=== PATIENT | male | born 1955 | race Caucasian/White ===

== ENCOUNTER 2017-07-01 18:38 | Emergency (ER) | payer OTHER ==
[~2017-07-01] VITALS: Ht 180.3 cm; Wt 113.4 kg
[2017-07-01] MEDS ORDERED: Solu-MEDROL 125mg Inj IVP ONE (19:15)
[2017-07-01] MEDS ORDERED: Albuterol/Ipratropium 3ml neb HHN ONE (19:15)
[2017-07-01 19:20] VITALS: BP 156/95
[2017-07-01 20:07] LABS: HEMATOCRIT 29.2 % (42.0-52.0); HEMOGLOBIN 9.2 G/DL (14.2-18.0); MEAN CORPUSCULAR VOLUME 82 FL (80-99); PLATELET COUNT 312 K/UL (150-450); RED BLOOD COUNT 3.54 M/UL (4.70-6.10); RED CELL DISTRIBUTION WIDTH 17.4 % (11.6-14.8)
[2017-07-01 20:09] LABS: ANION GAP 9 mmol/L (5-15); BLOOD UREA NITROGEN 45 mg/dL (7-18); CALCIUM 9.1 MG/DL (8.5-10.1); CARBON DIOXIDE 27 MMOL/L (21-32); CHLORIDE 103 MMOL/L (98-107); CREATININE 2.4 MG/DL (0.55-1.30); POTASSIUM 4.3 MMOL/L (3.5-5.1); SODIUM 139 MMOL/L (136-145)
[2017-07-01 20:13] LABS: APPEARANCE,URINE CLEAR; BILIRUBIN, URINE NEGATIVE (NEGATIVE); COLOR,URINE PALE YELLOW; GLUCOSE, URINE (UA) NEGATIVE (NEGATIVE); KETONES,URINE NEGATIVE (NEGATIVE); LEUKOCYTE ESTERASE ,URINE NEGATIVE (NEGATIVE); NITRITE,URINE NEGATIVE (NEGATIVE); PH,URINE 5 (4.5-8.0); PROTEIN,URINE 3+ (NEGATIVE); UROBILINOGEN,URINE NORMAL MG/DL (0.0-1.0)
[2017-07-01 20:23] LABS: ALANINE AMINOTRANSFERASE 26 U/L (12-78); ALBUMIN 2.7 G/DL (3.4-5.0); ALBUMIN/GLOBULIN RATIO 0.5 (1.0-2.7); ALKALINE PHOSPHATASE 104 U/L (46-116); ASPARTATE AMINO TRANSFERASE 16 U/L (15-37); BILIRUBIN,TOTAL 0.7 MG/DL (0.2-1.0); CKMB 1.2 NG/ML (0.0-3.6); CREATINE KINASE 47 U/L (26-308)
[2017-07-01] MEDS ORDERED: Morphine Sulfate 4mg/ml Inj IVP ONE (20:45)
[2017-07-01] MEDS ORDERED: Ampicillin/Sulbactam Sod 3 GM in NS 110 ML IVPB ONE (21:15)
[2017-07-01] MEDS ORDERED: Unasyn 3gm Inj ONE (21:24)
[2017-07-01 21:30] VITALS: BP 113/62
--- NOTE | 2017-07-01 21:51 | Emergency Room Report ---
History of Present Illness General Chief Complaint: Dyspnea/Respdistress Source: EMS Present Illness HPI Patient is a 62-year-old male brought in by EMS after increased difficulty breathing. Patient gradual onset of symptoms. Patient reported having prior history of COPD. He was having increased productive cough. This Had continued past 2 days. He had other complaints of chest pain. He reported having some low back pain. He states he's had prior history of GI bleed. He denies any vomiting or diarrhea. No fever but had been having chills. Allergies: Coded Allergies: No Known Allergies (Unverified , 07/01/17) Patient History Past Medical History: see triage record Reviewed Nursing Documentation: PMH: Agreed, PSxH: Agreed Nursing Documentation-PMH Hx Cardiac Problems: Yes - CHF Hx Hypertension: Yes Hx COPD: Yes Hx Diabetes: Yes Review of Systems All Other Systems: negative except mentioned in HPI Physical Exam Vital Signs Date Time Temp Pulse Resp B/P (MAP) Pulse Ox O2 Delivery O2 Flow Rate FiO2 07/01/17 18:48 100.0 115 20 156/95 97 Nasal Cannula 3.0 100.0 07/01/17 19:20 28 Sp02 EP Interpretation: reviewed, normal General Appearance: normal inspection, alert, GCS 15, non-toxic, obese, Chronically Ill Head: atraumatic ENT: normal ENT inspection, hearing grossly normal, normal voice Neck: normal inspection, full range of motion, supple, no bony tend Respiratory: normal inspection, no respiratory distress, no retraction, wheezing Cardiovascular #1: regular rate, rhythm, edema Gastrointestinal: normal inspection, normal bowel sounds, non tender, soft, no guarding, no hernia Genitourinary: no CVA tenderness Musculoskeletal: normal inspection, normal range of motion, decreased range of motion Neurologic: normal inspection, alert, oriented x3, responsive, allergy specialist III-XII nml as tested, speech normal Psychiatric: normal inspection, judgement/insight normal, mood/affect normal Skin: normal inspection, normal color, no rash Medical Decision Making Diagnostic Impression: Primary Impression: Respiratory distress Additional Impressions: Pneumonia COPD (chronic obstructive pulmonary disease) Renal insufficiency Anemia ER Course Patient presented for shortness of breath. Differential included but was not limited to anemia, pneumonia, pneumothorax, myocardial infarction, pericardial effusion, congestive heart failure, acidosis. Because of complexity of patient' s case laboratory testing and imaging studies were ordered. Laboratory studies are notable for anemia with hemoglobin of 9. Patient noted to have elevated BUN/creatinine consistent patient's chronic renal insufficiency. Patient was given IV antibiotics as well as IV steroids. He was given breathing treatments. Patient was given morphine for pain. EKG interpreted by me showed multifocal atrial tachycardia with a rate of [address] or T wave changes. I lactic as was noted be normal. ABG showed adequate oxygenation on 3 L nasal cannula with normal pH and adequate PO2. Dr. Bonilla from [facility] was contacted for transfer to [facility] Case [id number]. The patient was transferred to [facility]. Labs Test 07/01/17 19:45 07/01/17 19:50 07/01/17 20:00 White Blood Count 10.0 K/UL (4.8-10.8) Red Blood Count 3.54 M/UL (4.70-6.10) Hemoglobin 9.2 G/DL (14.2-18.0) Hematocrit 29.2 % (42.0-52.0) Mean Corpuscular Volume 82 FL (80-99) Mean Corpuscular Hemoglobin 26.0 PG (27.0-31.0) Mean Corpuscular Hemoglobin Concent 31.6 G/DL (32.0-36.0) Red Cell Distribution Width 17.4 % (11.6-14.8) Platelet Count 312 K/UL (150-450) Mean Platelet Volume 6.5 FL (6.5-10.1) Neutrophils (%) (Auto) % (45.0-75.0) Lymphocytes (%) (Auto) % (20.0-45.0) Monocytes (%) (Auto) % (1.0-10.0) Eosinophils (%) (Auto) % (0.0-3.0) Basophils (%) (Auto) % (0.0-2.0) Differential Total Cells Counted 100 Neutrophils % (Manual) 88 % (45-75) Lymphocytes % (Manual) 7 % (20-45) Monocytes % (Manual) 5 % (1-10) Eosinophils % (Manual) 0 % (0-3) Basophils % (Manual) 0 % (0-2) Band Neutrophils 0 % (0-8) Platelet Estimate Adequate Platelet Morphology Normal Hypochromasia 1+ Anisocytosis 1+ Sodium Level 139 MMOL/L (136-145) Potassium Level 4.3 MMOL/L (3.5-5.1) Chloride Level 103 MMOL/L (98-107) Carbon Dioxide Level 27 MMOL/L (21-32) Anion Gap 9 mmol/L (5-15) Blood Urea Nitrogen 45 mg/dL (7-18) Creatinine 2.4 MG/DL (0.55-1.30) Estimat Glomerular Filtration Rate 27.7 mL/min (>60) Glucose Level 159 MG/DL (74-106) Lactic Acid Level 1.20 mmol/L (0.66-2.22) Calcium Level 9.1 MG/DL (8.5-10.1) Total Bilirubin 0.7 MG/DL (0.2-1.0) Aspartate Amino Transf (AST/SGOT) 16 U/L (15-37) Alanine Aminotransferase (ALT/SGPT) 26 U/L (12-78) Alkaline Phosphatase 104 U/L (46-116) Total Creatine Kinase 47 U/L (26-308) Creatine Kinase MB 1.2 NG/ML (0.0-3.6) Creatine Kinase MB Relative Index 2.5 Troponin I 0.000 ng/mL (0.000-0.056) Total Protein 8.0 G/DL (6.4-8.2) Albumin 2.7 G/DL (3.4-5.0) Globulin 5.3 g/dL Albumin/Globulin Ratio 0.5 (1.0-2.7) Arterial Blood pH 7.438 (7.350-7.450) Arterial Blood Partial Pressure CO2 37.0 mmHg (35.0-45.0) Arterial Blood Partial Pressure O2 70.9 mmHg (75.0-100.0) Arterial Blood HCO3 24.5 mmol/L (22.0-26.0) Arterial Blood Oxygen Saturation 93.6 % (92.0-98.0) Arterial Blood Base Excess 0.4 Hayden Test Positive Urine Color Pale yellow Urine Appearance Clear Urine pH 5 (4.5-8.0) Urine Specific [place] 1.015 (1.005-1.035) Urine Protein 3+ (NEGATIVE) Urine Glucose (UA) Negative (NEGATIVE) Urine Ketones Negative (NEGATIVE) Urine Occult Blood 1+ (NEGATIVE) Urine Nitrite Negative (NEGATIVE) Urine Bilirubin Negative (NEGATIVE) Urine Urobilinogen Normal MG/DL (0.0-1.0) Urine Leukocyte Esterase Negative (NEGATIVE) Urine RBC 0-2 /HPF (0 - 0) Urine WBC 0-2 /HPF (0 - 0) Urine Squamous Epithelial Cells None /LPF (NONE/OCC) Urine Amorphous Sediment Few /LPF (NONE) Urine Bacteria Few /HPF (NONE) EKG Diagnostic Results Rate: tachycardiac Rhythm Strip Diag. Results EP Interpretation: yes Rhythm: other - occasional pvcs Last Vital Signs Date Time Temp Pulse Resp B/P (MAP) Pulse Ox O2 Delivery O2 Flow Rate FiO2 07/01/17 21:34 98.3 98.3 07/01/17 21:30 110 20 113/62 96 Nasal Cannula 3.0 07/01/17 19:30 28 Status: improved Disposition: XFER SHT-TRM HOSP Condition: Stable Referrals: [facility] (PCP) Krish Ornelas Jul 01, 2017 21:51
[2017-07-01 22:29] VITALS: BP 113/62
--- NOTE | 2017-07-02 10:48 | Diagnostic Imaging Report ---
Indication: Dyspnea Comparison: None A single view chest radiograph was obtained. Findings: Interstitial edema demonstrated with prominent pulmonary vascularity and borderline cardiomegaly. Bones are osteopenic. IMPRESSION: Interstitial edema/CHF
== END 2017-07-01 22:29 | disposition short-term general hospital (02) ==
LOC: EDBD 18:38 → EMR 21:09
DX: J18.9 Pneumonia, unspecified organism (principal); J44.9 Chronic obstructive pulmonary disease, unspecified; N28.9 Disorder of kidney and ureter, unspecified; D64.9 Anemia, unspecified; I11.0 Hypertensive heart disease with heart failure; I50.9 Heart failure, unspecified; E11.9 Type 2 diabetes mellitus without complications
CPT/HCPCS: 36415; 36600; 71045; 80053; 81003; 82550; 82553; 82803; 83605; 84484; 85007; 85025; 86710; 87040; 93005; 94640; 94664; 96365; 96375; 99285; J0295; J2270; J2405; J2930; J7620

== ENCOUNTER 2019-01-12 18:07 | Emergency (ER) | payer OTHER ==
[~2019-01-12] VITALS: Ht 177.8 cm; Wt 99.8 kg
[2019-01-12] MEDS ORDERED: Metoclopramide 10mg/2ml Inj IVP ONE (18:30)
--- NOTE | 2019-01-12 18:30 | Emergency Room Report ---
History of Present Illness General Chief Complaint: General Complaint Source: Patient, EMS Present Illness HPI Patient presents with diarrhea. He is also felt chills weakness. He was recently evaluated at [facility] last week. They told him his blood counts were low but he did need to have a blood transfusion at that time. Diarrhea is brown in color. He has no abdominal pain. Not passing blood. He denies recent use of antibiotics. Glucose 222 in field. He is a diabetic. He has a dry mouth. He also has edema which is chronic. He has chronic right leg weakness. On home O2 3-4 l/m. History of congestive heart failure. H/O a fib Status post stroke Allergies: Coded Allergies: No Known Allergies (Unverified , 07/01/17) Patient History Past Medical History: see triage record, old chart reviewed - Records from [facility] Social History: Denies: smoking - distant, alcohol use, drug use Social History Narrative at home Reviewed Nursing Documentation: PMH: Agreed; PSxH: Agreed Nursing Documentation-PM Past Medical History: No History, Except For Hx Cardiac Problems: Yes - AFIB, Hx Hypertension: Yes Hx COPD: Yes Hx Diabetes: Yes Hx Cerebrovascular Accident: Yes Review of Systems All Other Systems: negative except mentioned in HPI Physical Exam Vital Signs Date Time Temp Pulse Resp B/P (MAP) Pulse Ox O2 Delivery O2 Flow Rate FiO2 01/12/19 18:03 99.3 83 16 156/106 (123) 96 Nasal Cannula 3.0 Sp02 EP Interpretation: reviewed, normal General Appearance: no apparent distress, alert, GCS 15, non-toxic, obese, Chronically Ill Head: normocephalic Eyes: bilateral eye normal inspection, bilateral eye PERRL, bilateral eye EOMI ENT: dry mucus membranes Neck: supple Respiratory: no rhonchi, no respiratory distress, no retraction, no accessory muscle use, decreased breath sounds Cardiovascular #1: regular rate, rhythm, edema Cardiovascular #2: 2+ radial (R) Gastrointestinal: normal bowel sounds, non tender, no mass, no guarding, no rebound, distended, overweight Genitourinary: no CVA tenderness Musculoskeletal: back normal, normal range of motion Neurologic: alert, oriented x3, DTRs symmetric, sensory intact, speech normal, motor weakness - minimal R LE Psychiatric: mood/affect normal Reflexes: 1+ knee (R), 1+ knee (L); 0 ankle (R), 0 ankle (L) Skin: other - venous disease Medical Decision Making Diagnostic Impression: Primary Impression: Diarrhea Qualified Codes: R19.7 - Diarrhea, unspecified Additional Impressions: Renal insufficiency Hyperglycemia Bilateral leg pain Right leg weakness Leukocytosis Qualified Codes: D72.829 - Elevated white blood cell count, unspecified Dehydration Edema Qualified Codes: R60.9 - Edema, unspecified Cardiomegaly Congestive heart failure Qualified Codes: I50.82 - Biventricular heart failure Anemia Qualified Codes: D64.9 - Anemia, unspecified ER Course Presents with diarrhea. He has multiple other complaints also. Differential includes acute gastroenteritis, C. difficile colitis, light imbalance, colitis amongst others. He has not no abdominal pain. Evaluation will be with EKG, chest x-ray, abdomen film and labs. The patient will receive IV hydration and metoclopramide. Consideration of loperamide. A fib. CHF and inc cor. NSBGP. leukocytosis. Renal insufficiency. C/O LE pain bilat. Given morphine. Presented to [facility] . Will work on transfer for observation. Somewhat improved but needs observation and repeat labs. Laboratory Tests Test 01/12/19 19:00 01/12/19 19:56 White Blood Count 11.7 K/UL (4.8-10.8) H Red Blood Count 3.56 M/UL (4.70-6.10) L Hemoglobin 9.1 G/DL (14.2-18.0) L Hematocrit 29.0 % (42.0-52.0) L Mean Corpuscular Volume 81 FL (80-99) Mean Corpuscular Hemoglobin 25.7 PG (27.0-31.0) L Mean Corpuscular Hemoglobin Concent 31.6 G/DL (32.0-36.0) L Red Cell Distribution Width 16.3 % (11.6-14.8) H Platelet Count 408 K/UL (150-450) Mean Platelet Volume 5.1 FL (6.5-10.1) L Neutrophils (%) (Auto) 82.6 % (45.0-75.0) H Lymphocytes (%) (Auto) 7.9 % (20.0-45.0) L Monocytes (%) (Auto) 7.8 % (1.0-10.0) Eosinophils (%) (Auto) 1.3 % (0.0-3.0) Basophils (%) (Auto) 0.4 % (0.0-2.0) Prothrombin Time 12.9 SEC (9.30-11.50) H Prothrombin Time INR 1.2 (0.9-1.1) H PTT 33 SEC (23-33) Sodium Level 144 MMOL/L (136-145) Potassium Level 3.6 MMOL/L (3.5-5.1) Chloride Level 102 MMOL/L (98-107) Carbon Dioxide Level 30 MMOL/L (21-32) Anion Gap 12 mmol/L (5-15) Blood Urea Nitrogen 76 mg/dL (7-18) H Creatinine 2.1 MG/DL (0.55-1.30) H Estimate Glomerular Filtration Rate 32.2 mL/min (>60) Glucose Level 179 MG/DL (74-106) H Calcium Level 9.8 MG/DL (8.5-10.1) Total Bilirubin 0.5 MG/DL (0.2-1.0) Aspartate Amino Transferase (AST) 29 U/L (15-37) Alanine Aminotransferase (ALT) 47 U/L (12-78) Alkaline Phosphatase 102 U/L (46-116) Total Creatine Kinase 95 U/L (26-308) Troponin I 0.000 ng/mL (0.000-0.056) Total Protein 8.6 G/DL (6.4-8.2) H Albumin 2.6 G/DL (3.4-5.0) L Globulin 6.0 g/dL Albumin/Globulin Ratio 0.4 (1.0-2.7) L Lipase 112 U/L (73-393) Urine Color Pale yellow Urine Appearance Clear Urine pH 5 (4.5-8.0) Urine Specific [place] 1.010 (1.005-1.035) Urine Protein 2+ (NEGATIVE) H Urine Glucose (UA) Negative (NEGATIVE) Urine Ketones Negative (NEGATIVE) Urine Blood Negative (NEGATIVE) Urine Nitrite Negative (NEGATIVE) Urine Bilirubin Negative (NEGATIVE) Urine Urobilinogen Normal MG/DL (0.0-1.0) Urine Leukocyte Esterase Negative (NEGATIVE) Urine RBC 0-2 /HPF (0 - 0) H Urine WBC 0-2 /HPF (0 - 0) Urine Squamous Epithelial Cells None /LPF (NONE/OCC) Urine Bacteria Few /HPF (NONE) Urine Random Sodium 28 mmol/L (20-110) Urine Creatinine 49.3 MG/DL (30.0-125.0) EKG Diagnostic Results Rate: normal Rhythm: other - a fib ST Segments: no acute changes Rhythm Strip Diag. Results EP Interpretation: yes Rhythm: no PVC's, no ectopy, other - A fib Chest X-Ray Diagnostic Results Chest X-Ray Diagnostic Results : Chest X-Ray Ordered: Yes # of Views/Limited/Complete: 1 View Indication: Other EP Interpretation: Yes Interpretation: no pneumothorax, other - inc cor reversal flow Impression: Other Electronically Signed by: Electronically signed by Channing Thayer MD Other X-Ray Diagnostic Results Other X-Ray Diagnostic Results : X-Ray ordered: abd # of Views/Limited Vs Complete: 2 View Indication: Other EP Interpretation: Yes Interpretation: nonspecific bowel gas, no sbo, other Impression: Other Electronically Signed by: Electronically signed by Channing Thayer MD Last Vital Signs Date Time Temp Pulse Resp B/P (MAP) Pulse Ox O2 Delivery O2 Flow Rate FiO2 01/13/19 00:22 99.3 96 17 142/79 100 Nasal Cannula 2.0 Status: improved Disposition: XFER SHT-TRM HOSP Condition: Serious Channing Thayer MD Jan 12, 2019 18:30
--- NOTE | 2019-01-12 18:30 | NUR ---
ED Nurse Note:pt. was BIBA from home with c/o SOB and bilateral legs pain, VSS, pt. is ambulatory, A/Ox4, placed on N/C 2Loxygen, blood sent to labs, VSS, given IV meds and fluids
[2019-01-12 19:08] VITALS: BP 105/82
[2019-01-12 19:14] LABS: BASOPHILS % (AUTO) 0.4 % (0.0-2.0); EOSINOPHILS % (AUTO) 1.3 % (0.0-3.0); HEMOGLOBIN 9.1 G/DL (14.2-18.0); LYMPHOCYTES % (AUTO) 7.9 % (20.0-45.0); MEAN CORPUSCULAR VOLUME 81 FL (80-99); MONOCYTES % (AUTO) 7.8 % (1.0-10.0); NEUTROPHILS % (AUTO) 82.6 % (45.0-75.0); PLATELET COUNT 408 K/UL (150-450); RED BLOOD COUNT 3.56 M/UL (4.70-6.10); RED CELL DISTRIBUTION WIDTH 16.3 % (11.6-14.8); WHITE BLOOD COUNT 11.7 K/UL (4.8-10.8)
--- NOTE | 2019-01-12 19:15 | NUR ---
ED Nurse Note: Patiet is awake and alert with friend at bedside. Will continue to monitor.
[2019-01-12 19:26] LABS: INR 1.2 (0.9-1.1)
[2019-01-12 19:31] LABS: ANION GAP 12 mmol/L (5-15); BLOOD UREA NITROGEN 76 mg/dL (7-18); CALCIUM 9.8 MG/DL (8.5-10.1); CARBON DIOXIDE 30 MMOL/L (21-32); CHLORIDE 102 MMOL/L (98-107); CREATININE 2.1 MG/DL (0.55-1.30); POTASSIUM 3.6 MMOL/L (3.5-5.1); SODIUM 144 MMOL/L (136-145)
[2019-01-12 19:37] LABS: ALANINE AMINOTRANSFERASE 47 U/L (12-78); ALBUMIN 2.6 G/DL (3.4-5.0); ALBUMIN/GLOBULIN RATIO 0.4 (1.0-2.7); ALKALINE PHOSPHATASE 102 U/L (46-116); ASPARTATE AMINO TRANSFERASE 29 U/L (15-37); BILIRUBIN,TOTAL 0.5 MG/DL (0.2-1.0); CREATINE KINASE 95 U/L (26-308)
--- NOTE | 2019-01-12 20:06 | NUR ---
ED Nurse Note: Patient able to void to provide a urine sample.
[2019-01-12 20:24] LABS: APPEARANCE,URINE CLEAR; BILIRUBIN, URINE NEGATIVE (NEGATIVE); COLOR,URINE PALE YELLOW; GLUCOSE, URINE (UA) NEGATIVE (NEGATIVE); KETONES,URINE NEGATIVE (NEGATIVE); LEUKOCYTE ESTERASE ,URINE NEGATIVE (NEGATIVE); NITRITE,URINE NEGATIVE (NEGATIVE); PH,URINE 5 (4.5-8.0); PROTEIN,URINE 2+ (NEGATIVE); UROBILINOGEN,URINE NORMAL MG/DL (0.0-1.0)
--- NOTE | 2019-01-12 20:57 | NUR ---
ED Nurse Note: Patient is currently accompanied at bedside by his girlfriend, vital signs stable, will continue to monitor.
[2019-01-12] MEDS ORDERED: oxyCODONE HCL/Acetaminophen 5/325mg ORAL ONE (21:45)
--- NOTE | 2019-01-12 22:00 | NUR ---
ED Nurse Note: Patient reports mild decrease in pain. Patient provided with an additional pillow for comfort along with a warm blanket. Will continue to monitor.
--- NOTE | 2019-01-12 23:10 | NUR ---
ED Nurse Note: Patient is resting comfortably, has gone home. Lights have been dimmed per request. Transportation to [place] pending, patient is aware. Will continue to monitor.
--- NOTE | 2019-01-12 23:26 | NUR ---
ED Nurse Note: Patient tolerated pain medication well. Will continue to monitor. Vital signs stable and documented.
[2019-01-12 23:27] VITALS: BP 142/79
[2019-01-12] MEDS ORDERED: Morphine Sulfate 2mg/ml Inj(IV/IM USE ONLY) IVP ONE (23:30)
--- NOTE | 2019-01-12 23:51 | NUR ---
ED Nurse Note: Transport here for merchandise pickup/receiving associate, report given, still awaiting contact information for [facility] report call in. Transport and Charge nurse aware of delay. Will continue to monitor until departure.
--- NOTE | 2019-01-13 00:21 | NUR ---
ED Nurse Note: Patient ready for transport to [facility] ER. Called and gave report to Abbey GALLEGO,
[2019-01-13 00:22] VITALS: BP 142/79
--- NOTE | 2019-01-13 11:17 | Cardiology Report ---
APPROVED REPORT EKG Measurement Heart [id number] Atrial fibrillation Left axis deviation Abnormal ECG
--- NOTE | 2019-01-13 13:08 | Diagnostic Imaging Report ---
Indication: Chest pain Technique: One view of the chest Comparison: July 01, 2017 Findings: Body habitus limits evaluation. The heart is enlarged. There is equivocal mild interstitial congestion again demonstrated, extent similar to the prior exam. No focal airspace consolidation. No definite effusions Impression: Cardiomegaly with mild interstitial edema
--- NOTE | 2019-01-13 13:09 | Diagnostic Imaging Report ---
Indication: Abdominal pain Technique: Supine view of the abdomen Comparison: none Findings: Body habitus limits evaluation. Bowel gas pattern is unremarkable. No masses or unusual calcifications. The bones are unremarkable. The included thorax demonstrates cardiomegaly Impression: No acute process. Findings as noted
== END 2019-01-13 00:23 | disposition short-term general hospital (02) ==
LOC: EDBD 18:07 → EMR 18:33
DX: I50.82 Biventricular heart failure (principal); N28.9 Disorder of kidney and ureter, unspecified; R19.7 Diarrhea, unspecified; D72.829 Elevated white blood cell count, unspecified; R60.9 Edema, unspecified; D64.9 Anemia, unspecified; E11.65 Type 2 diabetes mellitus with hyperglycemia; M79.605 Pain in left leg; M79.604 Pain in right leg; R53.1 Weakness; I48.91 Unspecified atrial fibrillation; I11.0 Hypertensive heart disease with heart failure; J44.9 Chronic obstructive pulmonary disease, unspecified; Z86.73 Personal history of transient ischemic attack (TIA), and cerebral infarction without residual deficits; R10.9 Unspecified abdominal pain
CPT/HCPCS: 36415; 71045; 74018; 80053; 81003; 82550; 82570; 83690; 84300; 84484; 85025; 85610; 85730; 86850; 86900; 86901; 93005; 96374; 96375; 99284; J2270; J2765; J7040